=== PATIENT | male | born 1960 | race Caucasian/White ===

== ENCOUNTER 2018-01-16 01:06 | Outpatient (CLI) | payer MEDICAID, SELFPAY ==
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
== END 2018-01-16 01:07 ==
PROVIDERS: PCP Nurse Practitioner; Visit Provider Nurse Practitioner Family
DX: M79.672 Pain in left foot (principal); M25.572 Pain in left ankle and joints of left foot; M25.472 Effusion, left ankle; M77.32 Calcaneal spur, left foot
CPT/HCPCS: 73610; 73630

== ENCOUNTER 2018-02-27 00:22 | Outpatient (CLI) | payer MEDICAID, SELFPAY ==
--- NOTE | 2018-02-27 15:50 | DI.US_ITS ---
SYMPTOM/DIAGNOSIS: LLE EDEMA, R60.0 LEFT LOWER EXTREMITY ULTRASOUND: The deep veins of the left lower extremity show normal compression, augmentation and color flow. No evidence of a deep venous thrombus is seen. There is edema seen in the subcutaneous tissues of the lower extremity. IMPRESSION: No evidence of a left lower extremity deep venous thrombus.
== END 2018-02-27 00:42 ==
PROVIDERS: PCP Nurse Practitioner; Visit Provider Nurse Practitioner
DX: R60.0 Localized edema (principal); M79.662 Pain in left lower leg
CPT/HCPCS: 93971

== ENCOUNTER 2018-11-12 08:19 | Outpatient (CLI) | payer MEDICAID, SELFPAY ==
[2018-11-12 08:39] LABS: HCT 39.2 % (40.0-50.0); HGB 13.9 g/dL (13.5-17.5); Mean Corp. HGB Concentration 35.5 g/dL (32.0-36.0); Mean Corpuscular Hemoglobin 32.8 pg (27.0-33.0); Mean Corpuscular Volume 92.5 fL (80-95); Mean Platelet Volume 8.5 fL (8.0-11.0); Platelet Count 172 x1000/uL (130-400); RBC 4.24 m/cumm (4.50-6.00); RBC Distribution Width 12.5 % (11.8-14.1); White Blood Cell Count 8.36 k/cumm (4.4-10.8)
[2018-11-12 09:31] LABS: ALT 33 U/L (12-78); AST 21 U/L (15-37); Albumin 3.3 g/dL (3.4-5.0); Alkaline Phosphatase 111 U/L (46-116); BUN 11 mg/dL (7-18); Bilirubin, Total 0.6 mg/dL (0.2-1.0); CREATININE 1.21 mg/dL (0.70-1.30); Calcium 9.1 mg/dL (8.5-10.1); Calculated LDL 59; Chloride 106 mmol/L (98-107); Cholesterol 133 mg/dL (50-200); Glucose 83 mg/dL (70-100); HDL Cholesterol 38 mg/dL (40-60); Potassium 3.8 mmol/L (3.5-5.1); Sodium 141 mmol/L (136-145); Total Protein 6.8 g/dL (6.4-8.2); Triglyceride 180 mg/dL (30-150)
== END 2018-11-12 08:39 ==
PROVIDERS: PCP Nurse Practitioner; Visit Provider Nurse Practitioner
DX: E11.69 Type 2 diabetes mellitus with other specified complication (principal); E11.8 Type 2 diabetes mellitus with unspecified complications; E78.5 Hyperlipidemia, unspecified; F17.200 Nicotine dependence, unspecified, uncomplicated; I10 Essential (primary) hypertension; Z79.4 Long term (current) use of insulin
CPT/HCPCS: 36415; 80053; 80061; 83721; 85027; 82043; 82570

== ENCOUNTER 2020-09-26 08:52 | Outpatient (REF) | payer MEDICAID, SELFPAY ==
[2020-09-26 13:11] LABS: HGB 14.5 g/dL (13.5-17.5); MCH 32.3 pg (27.0-33.0); MCHC 34.5 % (32.0-36.0); MCV 93.5 fL (80-95); MPV 8.5 fL (8.0-11.0); Platelet Count 190 10^3/uL (130-400); RBC 4.49 10^6/uL (4.36-5.78); RDW 11.7 % (11.8-14.1); RDW-SD 40.4 fL; WBC 7.58 10^3/uL (4.4-10.8)
[2020-09-26 13:22] LABS: ALT 33 U/L (16-63); AST 18 U/L (15-37); Albumin 3.6 g/dL (3.4-5.0); Alkaline Phosphatase 90 U/L (46-116); Anion Gap 9.1 mmol/L (3-11); BUN 19 mg/dL (7-18); Bilirubin, Total 0.5 mg/dL (0.2-1.0); CO2 25.9 mmol/L (21.0-32.0); CREATININE 1.3 mg/dL (0.70-1.30); Calcium 8.7 mg/dL (8.5-10.1); Calculated LDL 75 mg/dL (<100); Chloride 108 mmol/L (98-107); Cholesterol 151 mg/dL (<200); Estimated GFR 56.12 (mL/min/1.73m2); Glucose 107 mg/dL (74-106); HDL Cholesterol 47 mg/dL (40-60); Sodium 143 mmol/L (136-145); Total Protein 7.3 g/dL (6.4-8.2); Triglyceride 146 mg/dL (<150)
[2020-09-27 16:28] LABS: COMMENT (LAB VIEW ONLY) 146.23 mg/dL
== END 2020-09-26 08:53 | disposition home or self-care (01) ==
LOC: LBN 08:52
PROVIDERS: PCP Nurse Practitioner; Referring Provider Nurse Practitioner; Visit Provider Nurse Practitioner
DX: E78.5 Hyperlipidemia, unspecified (principal); I10 Essential (primary) hypertension; E11.8 Type 2 diabetes mellitus with unspecified complications; Z79.4 Long term (current) use of insulin
CPT/HCPCS: 80053; 80061; 85027; 82043; 82570

== ENCOUNTER 2021-03-04 18:40 | Emergency (ER) | payer MEDICAID, SELFPAY ==
[2021-03-04] VITALS (80 sets, daily range): BP systolic 80–113; BP diastolic 54–69; PULSE 67–76; RESP 16; TEMP 36.4–36.6; O2SAT 84–100
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
[2021-03-04] MEDS: HYDROmorphone 2 MG/ML VIAL 1 MG IVP ×2 (18:40→20:33)
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
[2021-03-04 19:22] LABS: Abs Immature Grans 0.04 10^3/uL (0.0-0.06); Absolute Basophil Count 0.05 10^3/uL (0.0-0.2); Absolute Eosinophil Count 0.49 10^3/uL (0.0-0.7); Absolute Lymphocyte Count 1.81 10^3/uL (1.2-3.4); Absolute Monocyte Count 0.78 10^3/uL (0.1-0.8); Absolute Neutrophil Count 6.71 10^3/uL (1.2-6.7); Basophils % 0.5; HCT 31.7 % (40.0-50.0); HGB 10.9 g/dL (13.5-17.5); Immature Grans % 0.4; Lymphocytes % 18.3; MCH 32.2 pg (27.0-33.0); MCHC 34.4 % (32.0-36.0); MCV 93.8 fL (80-95); MPV 8.2 fL (8.0-11.0); Monocytes % 7.9; Neutrophils % 67.9; Nucleated RBC 0 %; Platelet Count 156 10^3/uL (130-400); RBC 3.38 10^6/uL (4.36-5.78); RDW 12.1 % (11.8-14.1); RDW-SD 41.8 fL; WBC 9.88 10^3/uL (4.4-10.8)
[2021-03-04 19:35] LABS: ALT 23 U/L (16-63); AST 15 U/L (15-37); Albumin 2.8 g/dL (3.4-5.0); Alkaline Phosphatase 79 U/L (46-116); Anion Gap 9.1 mmol/L (3-11); BUN 15 mg/dL (7-18); Bilirubin, Total 0.5 mg/dL (0.2-1.0); CO2 22.9 mmol/L (21.0-32.0); CREATININE 1.5 mg/dL (0.70-1.30); Chloride 109 mmol/L (98-107); Estimated GFR 47.58 (mL/min/1.73m2); Glucose 161 mg/dL (74-106); Potassium 3.7 mmol/L (3.5-5.1); Sodium 141 mmol/L (136-145); Total Protein 5.8 g/dL (6.4-8.2)
[2021-03-04 19:39] LABS: PTT Activated 20.7 sec (21.0-27.5); Prothrombin Time 10.2 sec (9.3-11.0)
[2021-03-04 20:02] LABS: Source Nasal/Nares
[2021-03-04] MEDS: Omnipaque 350 MG/ML 100 ML BTL IJ (20:02)
[2021-03-04] MEDS: Lactated Ringers 1,000 ML 125 ML IV (20:30)
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
[2021-03-04] MEDS: Tranexamic Acid 1,000 MG/10 ML VIAL 1000 MG ×2 (20:45→21:30)
[2021-03-04 20:51] LABS: COVID-19 PCR Negative (Negative)
== END 2021-03-04 21:50 | disposition short-term general hospital (02) ==
PROVIDERS: Student in an Organized Health Care Education/Training Program; Emergency Provider Physician Assistant; PCP Nurse Practitioner
DX: S82.292B Other fracture of shaft of left tibia, initial encounter for open fracture type I or II (principal); S82.492B Other fracture of shaft of left fibula, initial encounter for open fracture type I or II; S85.092A Other specified injury of popliteal artery, left leg, initial encounter; S85.182A Other specified injury of posterior tibial artery, left leg, initial encounter; W32.0XXA Accidental handgun discharge, initial encounter
CPT/HCPCS: 36430; 73706; 80053; 86850; 86900; 86901; 86920; 87635; 96361; 96365; 96375; 96376; 99285; 85025; 85610; 85730; J0690; J3490; P9016

== ENCOUNTER 2021-03-14 20:00 | Outpatient (REF) | payer MEDICAID, SELFPAY ==
[2021-03-14 21:13] LABS: Absolute Basophil Count 0.03 10^3/uL (0.0-0.2); Absolute Eosinophil Count 0.54 10^3/uL (0.0-0.7); Absolute Lymphocyte Count 1.39 10^3/uL (1.2-3.4); Absolute Neutrophil Count 5.53 10^3/uL (1.2-6.7); Basophils % 0.3; Eosinophils % 6.1; HCT 26.9 % (40.0-50.0); HGB 8.8 g/dL (13.5-17.5); Immature Grans % 3.4; Lymphocytes % 15.6; MCH 31.1 pg (27.0-33.0); MCHC 32.7 % (32.0-36.0); MCV 95.1 fL (80-95); MPV 9.4 fL (8.0-11.0); Monocytes % 12.4; Neutrophils % 62.2; Nucleated RBC 0 %; RBC 2.83 10^6/uL (4.36-5.78); RDW 14.5 % (11.8-14.1); RDW-SD 49.4 fL; WBC 8.89 10^3/uL (4.4-10.8)
[2021-03-14 21:17] LABS: Platelet Count 290 10^3/uL (130-400)
[2021-03-14 22:28] LABS: Anion Gap 8.6 mmol/L (3-11); BUN 17 mg/dL (7-18); CO2 24.4 mmol/L (21.0-32.0); CREATININE 1.2 mg/dL (0.70-1.30); Calcium 8.2 mg/dL (8.5-10.1); Chloride 100 mmol/L (98-107); Glucose 150 mg/dL (74-106); Potassium 3.6 mmol/L (3.5-5.1); Sodium 133 mmol/L (136-145)
== END 2021-03-14 20:01 | disposition home or self-care (01) ==
LOC: LBN 20:00
PROVIDERS: PCP Nurse Practitioner; Visit Provider Family Medicine
DX: I10 Essential (primary) hypertension (principal); N17.9 Acute kidney failure, unspecified; D62 Acute posthemorrhagic anemia
CPT/HCPCS: 80048; 85025

== ENCOUNTER 2021-03-16 16:36 | Outpatient (REF) | payer MEDICAID, SELFPAY ==
[2021-03-16 18:02] LABS: Abs Immature Grans 0.13 10^3/uL (0.0-0.06); Absolute Basophil Count 0.03 10^3/uL (0.0-0.2); Absolute Eosinophil Count 0.37 10^3/uL (0.0-0.7); Absolute Lymphocyte Count 1.54 10^3/uL (1.2-3.4); Absolute Monocyte Count 1.09 10^3/uL (0.1-0.8); Absolute Neutrophil Count 3.45 10^3/uL (1.2-6.7); Basophils % 0.5; Eosinophils % 5.6; HCT 24.9 % (40.0-50.0); Lymphocytes % 23.3; MCH 31.3 pg (27.0-33.0); MCHC 32.1 % (32.0-36.0); MCV 97.3 fL (80-95); MPV 9.2 fL (8.0-11.0); Monocytes % 16.5; Neutrophils % 52.1; Nucleated RBC 0 %; Platelet Count 309 10^3/uL (130-400); RBC 2.56 10^6/uL (4.36-5.78); RDW-SD 51.8 fL; WBC 6.61 10^3/uL (4.4-10.8)
[2021-03-16 18:13] LABS: ALT 70 U/L (16-63); AST 40 U/L (15-37); Albumin 2.3 g/dL (3.4-5.0); Alkaline Phosphatase 169 U/L (46-116); Anion Gap 5.5 mmol/L (3-11); BUN 10 mg/dL (7-18); Bilirubin, Total 0.6 mg/dL (0.2-1.0); CO2 25.5 mmol/L (21.0-32.0); CREATININE 1.2 mg/dL (0.70-1.30); Calcium 7.8 mg/dL (8.5-10.1); Chloride 103 mmol/L (98-107); Glucose 155 mg/dL (74-106); Sodium 134 mmol/L (136-145); Total Protein 5.8 g/dL (6.4-8.2)
[2021-03-16 19:08] LABS: Hemoglobin A1C 6.3 % (<5.7)
== END 2021-03-16 16:37 | disposition home or self-care (01) ==
LOC: LBN 16:36
PROVIDERS: PCP Nurse Practitioner; Visit Provider Family Medicine
DX: E11.319 Type 2 diabetes mellitus with unspecified diabetic retinopathy without macular edema (principal)
CPT/HCPCS: 80053; 83036; 85025

== ENCOUNTER 2021-04-30 18:00 | Outpatient (REF) | payer MEDICAID, SELFPAY ==
[2021-04-30 19:33] LABS: HCT 37.4 % (40.0-50.0); MCH 29.9 pg (27.0-33.0); MCHC 32.1 % (32.0-36.0); MCV 93.3 fL (80-95); MPV 8.9 fL (8.0-11.0); Platelet Count 257 10^3/uL (130-400); RBC 4.01 10^6/uL (4.36-5.78); RDW 13.5 % (11.8-14.1); WBC 6.89 10^3/uL (4.4-10.8)
[2021-04-30 19:52] LABS: ALT 30 U/L (16-63); AST 17 U/L (15-37); Albumin 3.1 g/dL (3.4-5.0); Alkaline Phosphatase 135 U/L (46-116); Anion Gap 10.2 mmol/L (3-11); BUN 19 mg/dL (7-18); Bilirubin, Total 0.3 mg/dL (0.2-1.0); CO2 25.8 mmol/L (21.0-32.0); CREATININE 1.2 mg/dL (0.70-1.30); Calcium 8.8 mg/dL (8.5-10.1); Chloride 106 mmol/L (98-107); Glucose 241 mg/dL (74-106); Potassium 4.5 mmol/L (3.5-5.1); Sodium 142 mmol/L (136-145); Total Protein 7.1 g/dL (6.4-8.2)
== END 2021-04-30 18:01 | disposition home or self-care (01) ==
LOC: LBN 18:00
PROVIDERS: PCP Nurse Practitioner; Visit Provider Nurse Practitioner
DX: S81.832D Puncture wound without foreign body, left lower leg, subsequent encounter; X58.XXXD Exposure to other specified factors, subsequent encounter
CPT/HCPCS: 80053; 85027

== ENCOUNTER 2021-10-02 09:09 | Outpatient (REF) | payer MEDICAID, SELFPAY ==
[2021-10-02 17:03] LABS: HCT 38.9 % (40.0-50.0); HGB 13.4 g/dL (13.5-17.5); MCH 31.3 pg (27.0-33.0); MCHC 34.4 % (32.0-36.0); MCV 90.9 fL (80-95); MPV 8.8 fL (8.0-11.0); Platelet Count 205 10^3/uL (130-400); RBC 4.28 10^6/uL (4.36-5.78); RDW 12.6 % (11.8-14.1); RDW-SD 41.3 fL; WBC 8.16 10^3/uL (4.4-10.8)
[2021-10-02 17:07] LABS: ALT 24 U/L (16-63); AST 16 U/L (15-37); Albumin 3.4 g/dL (3.4-5.0); Alkaline Phosphatase 123 U/L (46-116); Anion Gap 8.8 mmol/L (3-11); BUN 24 mg/dL (7-18); Bilirubin, Total 0.4 mg/dL (0.2-1.0); CO2 23.2 mmol/L (21.0-32.0); CREATININE 1.2 mg/dL (0.70-1.30); Calcium 9.1 mg/dL (8.5-10.1); Calculated LDL 63 mg/dL (<100); Chloride 106 mmol/L (98-107); Cholesterol 160 mg/dL (<200); Glucose 147 mg/dL (74-106); HDL Cholesterol 48 mg/dL (40-60); Potassium 3.7 mmol/L (3.5-5.1); Sodium 138 mmol/L (136-145); Total Protein 7.1 g/dL (6.4-8.2); Triglyceride 249 mg/dL (<150)
== END 2021-10-02 09:10 | disposition home or self-care (01) ==
LOC: LBN 09:09
PROVIDERS: PCP Nurse Practitioner; Visit Provider Nurse Practitioner
DX: I10 Essential (primary) hypertension (principal); E78.5 Hyperlipidemia, unspecified; E11.69 Type 2 diabetes mellitus with other specified complication
CPT/HCPCS: 80053; 80061; 85027

== ENCOUNTER → 2022-03-21 01:25 | Outpatient (CLI) | payer MEDICAID, SELFPAY ==
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
== END ==
PROVIDERS: PCP Nurse Practitioner; Visit Provider Student in an Organized Health Care Education/Training Program
DX: S82.202E Unspecified fracture of shaft of left tibia, subsequent encounter for open fracture type I or II with routine healing (principal); S82.402E Unspecified fracture of shaft of left fibula, subsequent encounter for open fracture type I or II with routine healing
CPT/HCPCS: 73700

== ENCOUNTER 2022-05-07 09:59 | Outpatient (CLI) | payer MEDICAID, SELFPAY ==
--- NOTE | 2022-05-07 09:45 | RT.EKG_ITS ---
APPROVED REPORT Exam: Resting ECG Reason for Exam: ED Patient Location: O HR:60 bpm ECG Measurements Heart Rate 60 AXIS AR 202 P 35 QRSd 87 QRS -11 QT 413 T 29 QTc 413 Conclusion Sinus rhythm...normal P axis, V-rate 50- 99 Abnormal R-wave progression, early transition...QRS area>0 in V2
== END 2022-05-07 10:00 | disposition home or self-care (01) ==
LOC: DI.KIM 10:00
PROVIDERS: PCP Nurse Practitioner; Visit Provider Nurse Practitioner
DX: N52.9 Male erectile dysfunction, unspecified (principal)
CPT/HCPCS: 93010

== ENCOUNTER 2022-10-28 11:45 | Outpatient (REF) | payer MEDICAID, SELFPAY ==
[2022-10-28 16:13] LABS: HCT 39.8 % (40.0-50.0); MCH 32.6 pg (27.0-33.0); MCHC 35.2 % (32.0-36.0); MCV 93 fL (80-95); MPV 8.4 fL (8.0-11.0); Platelet Count 182 10^3/uL (130-400); RDW 12.2 % (11.8-14.1); RDW-SD 42.1 fL; WBC 7.94 10^3/uL (4.4-10.8)
[2022-10-28 17:51] LABS: ALT 29 U/L (16-63); AST 20 U/L (15-37); Albumin 3.7 g/dL (3.4-5.0); Alkaline Phosphatase 90 U/L (46-116); BUN 21 mg/dL (7-18); Bilirubin, Total 0.7 mg/dL (0.2-1.0); CREATININE 1.6 mg/dL (0.70-1.30); Calcium 9.6 mg/dL (8.5-10.1); Chloride 104 mmol/L (98-107); Estimated GFR 48.11 (mL/min/1.73m2); Glucose 101 mg/dL (74-106); Potassium 3.9 mmol/L (3.5-5.1); Sodium 139 mmol/L (136-145); TSH (W/Ref FT4) 4.01 uIU/mL (0.36-3.74); Total Protein 7.6 g/dL (6.4-8.2)
[2022-10-28 18:16] LABS: Calculated LDL 66 mg/dL (<100); Cholesterol 140 mg/dL (<200); HDL Cholesterol 50 mg/dL (40-60); Triglyceride 120 mg/dL (<150)
[2022-10-28 18:27] LABS: FREE T4 0.86 ng/dL (0.76-1.46)
== END 2022-10-28 11:46 | disposition home or self-care (01) ==
LOC: LBN 11:45
PROVIDERS: PCP Nurse Practitioner; Referring Provider Nurse Practitioner; Visit Provider Nurse Practitioner
DX: I10 Essential (primary) hypertension (principal); E78.5 Hyperlipidemia, unspecified; E11.69 Type 2 diabetes mellitus with other specified complication; R63.4 Abnormal weight loss
CPT/HCPCS: 80053; 80061; 85027; 84439; 84443

== ENCOUNTER 2023-05-19 11:23 | Emergency (ER) | payer MEDICAID, SELFPAY ==
[2023-05-19] VITALS (8 sets, daily range): BP systolic 101–141; BP diastolic 57–83; PULSE 58–88; RESP 16; O2SAT 94–98
[2023-05-19 12:27] LABS: Abs Immature Grans 0.02 10^3/uL (0.0-0.06); Absolute Basophil Count 0.04 10^3/uL (0.0-0.2); Absolute Lymphocyte Count 1.04 10^3/uL (1.2-3.4); Absolute Monocyte Count 0.64 10^3/uL (0.1-0.8); Basophils % 0.6; Eosinophils % 4.7; HCT 38.7 % (40.0-50.0); HGB 13.4 g/dL (13.5-17.5); Immature Grans % 0.3; Lymphocytes % 16.4; MCH 31.8 pg (27.0-33.0); MCHC 34.6 % (32.0-36.0); MCV 92 fL (80-95); MPV 8.4 fL (8.0-11.0); Monocytes % 10.1; Neutrophils % 67.9; Platelet Count 158 10^3/uL (130-400); RBC 4.21 10^6/uL (4.36-5.78); RDW 12.5 % (11.8-14.1); RDW-SD 42.1 fL; WBC 6.34 10^3/uL (4.4-10.8)
[2023-05-19 12:42] LABS: ALT 45 U/L (16-63); AST 26 U/L (15-37); Albumin 3.2 g/dL (3.4-5.0); Alkaline Phosphatase 144 U/L (46-116); Anion Gap 12.6 mmol/L (3-11); BUN 19 mg/dL (7-18); Bilirubin, Total 0.7 mg/dL (0.2-1.0); CO2 23.4 mmol/L (21.0-32.0); CREATININE 1.8 mg/dL (0.70-1.30); Calcium 8.8 mg/dL (8.5-10.1); Chloride 100 mmol/L (98-107); Estimated GFR 41.77 (mL/min/1.73m2); Glucose 176 mg/dL (74-106); Magnesium 1.7 mg/dL (1.8-2.4); Sodium 136 mmol/L (136-145); Total Protein 7.4 g/dL (6.4-8.2)
[2023-05-19] MEDS: Magnesium Oxide 400 MG TAB 800 MG PO (13:27)
[2023-05-19] MEDS: POTASSIUM CHLORIDE 20 MEQ/100 ML BAG 50 MEQ IVPB (13:27)
[2023-05-19] MEDS: Potassium Chloride 20 MEQ TABCR PO (13:27)
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
== END 2023-05-19 16:10 | disposition home or self-care (01) ==
PROVIDERS: Emergency Provider Student in an Organized Health Care Education/Training Program; PCP Nurse Practitioner
DX: E11.649 Type 2 diabetes mellitus with hypoglycemia without coma (principal); E87.6 Hypokalemia; E83.42 Hypomagnesemia
CPT/HCPCS: 36415; 36416; 80053; 82962; 96365; 99284; 83735; 85025; J3480

== ENCOUNTER 2023-10-06 05:46 | Outpatient (CLI) | payer MEDICAID, SELFPAY ==
[2023-10-06 13:36] LABS: Abs Immature Grans 0.02 10^3/uL (0.0-0.06); Absolute Basophil Count 0.05 10^3/uL (0.0-0.2); Absolute Lymphocyte Count 2.09 10^3/uL (1.2-3.4); Absolute Monocyte Count 0.59 10^3/uL (0.1-0.8); Absolute Neutrophil Count 4.25 10^3/uL (1.2-6.7); Basophils % 0.7; Eosinophils % 6.7; HCT 39.6 % (40.0-50.0); Immature Grans % 0.3; Lymphocytes % 27.9; MCH 32.9 pg (27.0-33.0); MCHC 35.4 % (32.0-36.0); MCV 93 fL (80-95); MPV 8.2 fL (8.0-11.0); Monocytes % 7.9; Neutrophils % 56.5; Platelet Count 169 10^3/uL (130-400); RBC 4.26 10^6/uL (4.36-5.78); RDW 12.4 % (11.8-14.1); RDW-SD 42.5 fL
[2023-10-06 14:05] LABS: ALT 26 U/L (16-63); AST 15 U/L (15-37); Albumin 3.7 g/dL (3.4-5.0); Alkaline Phosphatase 95 U/L (46-116); Anion Gap 12.4 mmol/L (3-11); BUN 23 mg/dL (7-18); Bilirubin, Total 0.4 mg/dL (0.2-1.0); CO2 20.6 mmol/L (21.0-32.0); CREATININE 1.5 mg/dL (0.70-1.30); Calcium 9.3 mg/dL (8.5-10.1); Chloride 105 mmol/L (98-107); Estimated GFR 51.67 (mL/min/1.73m2); Glucose 147 mg/dL (74-106); Potassium 4.1 mmol/L (3.5-5.1); Sodium 138 mmol/L (136-145); Total Protein 7.3 g/dL (6.4-8.2)
== END 2023-10-06 05:47 | disposition home or self-care (01) ==
PROVIDERS: PCP Nurse Practitioner; Visit Provider Nurse Practitioner
DX: E11.8 Type 2 diabetes mellitus with unspecified complications (principal); Z79.4 Long term (current) use of insulin
CPT/HCPCS: 36415; 80053; 85025

== ENCOUNTER 2024-12-21 17:03 | Outpatient (REF) | payer MEDICARE, SELFPAY | END 2024-12-21 17:04 | disposition home or self-care (01) | LOC: LBN 17:03 | PROVIDERS: PCP Nurse Practitioner; Visit Provider Nurse Practitioner Family | DX: L97.509 Non-pressure chronic ulcer of other part of unspecified foot with unspecified severity (principal) | CPT/HCPCS: 87077; 87070; 87186 ==

== ENCOUNTER 2024-12-22 01:30 | Outpatient (CLI) | payer MEDICARE, SELFPAY ==
--- NOTE | 2024-12-22 07:15 | DI.RAD_ITS ---
Exam(s) XR FOOT RT COMPLETE EXAM: XR FOOT RT COMPLETE CLINICAL HISTORY: new diabetic ulcer right 3rd toe,l97.509. TECHNIQUE: 2D digital imaging was performed of the right foot. Three images were obtained. AP, oblique and lateral views were obtained. COMPARISON: CR RIGHT FOOT COMPLETE from 11/18/2013 FINDINGS: BONES: No acute fracture is present. No bony destructive lesion is seen. There is a small enthesophyte at the posterior calcaneus. JOINTS: No dislocation present. There are hammertoe deformities of the 2nd through 5th toes. Because of this there is some difficulty in seeing the right 3rd toe, but no destructive lesion is seen to suggest osteomyelitis. SOFT TISSUE: No soft tissue gas is appreciated at this time. Vascular calcifications are present throughout the foot. IMPRESSION: No radiographic evidence to suggest osteomyelitis. DATA REPOSITORY: RADIATION DOSE DELIVERED:
== END 2024-12-22 01:50 ==
PROVIDERS: PCP Family Medicine; Visit Provider Nurse Practitioner Family
DX: M20.41 Other hammer toe(s) (acquired), right foot (principal)
CPT/HCPCS: 73630

== ENCOUNTER 2024-12-22 10:25 | Outpatient (CLI) | payer MEDICARE, SELFPAY ==
[2024-12-22 10:59] LABS: HCT 36.9 % (40.0-50.0); HGB 12.8 g/dL (13.5-17.5); MCH 32.2 pg (27.0-33.0); MCHC 34.7 % (32.0-36.0); MCV 93 fL (80-95); MPV 8.7 fL (8.0-11.0); Platelet Count 172 10^3/uL (130-400); RBC 3.98 10^6/uL (4.36-5.78); RDW 12.4 % (11.8-14.1); RDW-SD 42.6 fL; WBC 7.00 10^3/uL (4.4-10.8)
[2024-12-22 11:21] LABS: Anion Gap 12.7 mmol/L (3-11); BUN 18 mg/dL (7-18); CO2 22.3 mmol/L (21.0-32.0); Calcium 9.6 mg/dL (8.5-10.1); Calculated LDL 84 mg/dL (<100); Chloride 104 mmol/L (98-107); Cholesterol 149 mg/dL (<200); Estimated GFR 55.78 (mL/min/1.73m2); Glucose 93 mg/dL (74-106); HDL Cholesterol 43 mg/dL (>or=40); Potassium 3.8 mmol/L (3.5-5.1); Sodium 139 mmol/L (136-145); Triglyceride 111 mg/dL (<150)
[2024-12-22 11:23] LABS: Hemoglobin A1C 6.9 % (<5.7)
== END 2024-12-22 10:26 | disposition home or self-care (01) ==
LOC: LBO 10:26
PROVIDERS: PCP Family Medicine; Visit Provider Nurse Practitioner Family
DX: E11.8 Type 2 diabetes mellitus with unspecified complications (principal); Z79.4 Long term (current) use of insulin; L97.509 Non-pressure chronic ulcer of other part of unspecified foot with unspecified severity; I10 Essential (primary) hypertension; E78.5 Hyperlipidemia, unspecified
CPT/HCPCS: 36415; 80048; 80061; 85027; 73630; 83036

== ENCOUNTER → 2024-12-27 09:25 | Outpatient (BNVA) | payer MEDICARE, MEDICAID, SELFPAY | PROVIDERS: PCP Nurse Practitioner; Referring Provider Nurse Practitioner; Visit Provider Podiatrist | DX: L97.512 Non-pressure chronic ulcer of other part of right foot with fat layer exposed (principal); E11.8 Type 2 diabetes mellitus with unspecified complications; Z79.4 Long term (current) use of insulin; I73.89 Other specified peripheral vascular diseases | CPT/HCPCS: 11042 ==

== ENCOUNTER → 2025-01-18 14:45 | Outpatient (BNVA) | payer MEDICARE, MEDICAID, SELFPAY | PROVIDERS: PCP Nurse Practitioner; Referring Provider Nurse Practitioner; Visit Provider Podiatrist | DX: L97.512 Non-pressure chronic ulcer of other part of right foot with fat layer exposed (principal); E11.621 Type 2 diabetes mellitus with foot ulcer; I73.89 Other specified peripheral vascular diseases; Z79.4 Long term (current) use of insulin | CPT/HCPCS: 11042 ==

== ENCOUNTER 2025-03-03 13:45 | Outpatient (REF) | payer MEDICARE, MEDICAID, SELFPAY | END 2025-03-03 13:46 | disposition home or self-care (01) | LOC: LBN 13:45 | PROVIDERS: PCP Family Medicine; Referring Provider Family Medicine; Visit Provider Podiatrist | DX: M86.9 Osteomyelitis, unspecified (principal); L97.512 Non-pressure chronic ulcer of other part of right foot with fat layer exposed | CPT/HCPCS: 87077; 87070; 87075; 87205 ==

== ENCOUNTER → 2025-03-03 13:45 | Outpatient (BNVA) | payer MEDICARE, MEDICAID, SELFPAY | PROVIDERS: PCP Family Medicine; Referring Provider Family Medicine; Visit Provider Podiatrist | DX: L97.512 Non-pressure chronic ulcer of other part of right foot with fat layer exposed (principal); L02.611 Cutaneous abscess of right foot; L03.115 Cellulitis of right lower limb; E11.8 Type 2 diabetes mellitus with unspecified complications; Z79.4 Long term (current) use of insulin; Z91.199 Patient's noncompliance with other medical treatment and regimen due to unspecified reason; I73.89 Other specified peripheral vascular diseases; M86.9 Osteomyelitis, unspecified | CPT/HCPCS: 28010; 11042 ==

== ENCOUNTER → 2025-03-09 10:28 | Outpatient (BNVA) | payer MEDICARE, MEDICAID, SELFPAY | PROVIDERS: PCP Family Medicine; Referring Provider Family Medicine; Visit Provider Podiatrist | DX: Z98.890 Other specified postprocedural states (principal); M20.41 Other hammer toe(s) (acquired), right foot; L02.611 Cutaneous abscess of right foot; L03.115 Cellulitis of right lower limb; L97.512 Non-pressure chronic ulcer of other part of right foot with fat layer exposed; E11.621 Type 2 diabetes mellitus with foot ulcer; Z79.4 Long term (current) use of insulin; Z91.199 Patient's noncompliance with other medical treatment and regimen due to unspecified reason; I73.9 Peripheral vascular disease, unspecified | CPT/HCPCS: 99024 ==

== ENCOUNTER → 2025-03-16 10:16 | Outpatient (BNVA) | payer MEDICARE, MEDICAID, SELFPAY | PROVIDERS: PCP Family Medicine; Referring Provider Family Medicine; Visit Provider Podiatrist | DX: L97.512 Non-pressure chronic ulcer of other part of right foot with fat layer exposed (principal); E11.621 Type 2 diabetes mellitus with foot ulcer; Z79.4 Long term (current) use of insulin; I73.89 Other specified peripheral vascular diseases; M20.41 Other hammer toe(s) (acquired), right foot; Z91.199 Patient's noncompliance with other medical treatment and regimen due to unspecified reason | CPT/HCPCS: 97597 ==

== ENCOUNTER 2025-05-29 14:47 | Emergency (ER) | payer MEDICARE, MEDICAID, SELFPAY ==
[2025-05-29 14:48] VITALS: BP 171/82; PULSE 41; RESP 18; TEMP 36.9; O2SAT 98
[2025-05-29 14:55] VITALS: BP 171/82; PULSE 41; RESP 18; TEMP 36.9; O2SAT 98
--- NOTE | 2025-05-29 16:15 | DI.RAD_ITS ---
Exam(s) XR FOOT RT COMPLETE EXAM: XR FOOT RT COMPLETE CLINICAL HISTORY: 2nd toe injury, now with erythema. TECHNIQUE: 2D digital imaging was performed of the right foot. Three images were obtained. AP, oblique and lateral views were obtained. COMPARISON: CR RIGHT FOOT COMPLETE from 11/18/2013 CR XR FOOT RT COMPLETE from 12/22/2024 FINDINGS: BONES: No acute fracture is present. No bony destructive lesion is seen. There is an old healed fracture deformity of the distal phalanx of the great toe. JOINTS: No dislocation present. There has been no significant change in alignment of the interphalangeal joints of the 2nd, 4th and 5th toes compared to the prior examination. SOFT TISSUE: There is soft tissue swelling of the 2nd toe. There is a tiny well corticated osseous density in the soft tissues of the 2nd toe. It appears chronic. Atherosclerotic calcification is present. IMPRESSION: 1. No definite change in alignment of the 2nd toe compared to the prior examination. If there is continued concern, a CT scan of the toes should be considered for further characterization. 2. The preliminary [facility] report was reviewed. DATA REPOSITORY: RADIATION DOSE DELIVERED:
[2025-05-29] MEDS: AMPICILLIN/SULBACTAM 3 GM in Normal Saline 100 ML IVPB (17:13)
[2025-05-29 17:19] LABS: Abs Immature Grans 0.02 10^3/uL (0.0-0.06); BE (Venous) -3 mmol/L (-2-3); HCO3 (Venous) 22 mmol/L (23-28); HCT 34.4 % (40.0-50.0); HGB 12.1 g/dL (13.5-17.5); Immature Grans % 0.3 %; MCH 32.4 pg (27.0-33.0); MCHC 35.2 % (32.0-36.0); MCV 92 fL (80-95); MPV 9.2 fL (8.0-11.0); O2 Sat (Venous) 96 %; Platelet Count 167 10^3/uL (130-400); RBC 3.74 10^6/uL (4.36-5.78); RDW 11.9 % (11.8-14.1); RDW-SD 40.3 fL; TCO2 (Venous) 20 mmol/L (24-29); WBC 6.32 10^3/uL (4.4-10.8); pCO2 (Venous) 35 mmHg (41-51); pO2 (Venous) 71 mmHg
[2025-05-29 17:30] LABS: ESR 22 mm/hr (0-20)
[2025-05-29 17:43] LABS: C-Reactive Protein 3.43 mg/dL (<=0.50)
[2025-05-29 17:59] LABS: ALT 36 U/L (10-49); AST 33 U/L (<34); Albumin 3.9 g/dL (3.2-5.0); Alkaline Phosphatase 92 U/L (46-116); Anion Gap 3.4 mmol/L (3-11); BUN 26 mg/dL (9-23); Bilirubin, Total 0.3 mg/dL (0.2-1.2); CO2 21.6 mmol/L (20.0-31.0); Calcium 8.9 mg/dL (8.3-10.6); Chloride 114 mmol/L (98-107); Glucose 158 mg/dL (74-106); Potassium 4.4 mmol/L (3.5-5.1); Sodium 139 mmol/L (136-145); Total Protein 7.0 g/dL (5.7-8.2)
--- NOTE | 2025-05-29 18:15 | DI.[facility]_ITS ---
PROCEDURE INFORMATION: Exam: XR Right Foot Exam date and time: 05/29/2025 5:22 PM Age: 64 years old Clinical indication: Injury or trauma; Other: 2nd toe injury, now with erythema TECHNIQUE: Imaging protocol: Radiologic exam of the right foot. Views: 3 or more views. COMPARISON: CR XR FOOT RT COMPLETE 12/22/2024 10:07 AM FINDINGS: Bones/joints: There is an anterior dislocation of the PIP joint of the 2nd toe. There appears to be minimal impaction. Similar changes involve the 4th and 5th toes, uncertain chronicity. Degenerative changes noted in the IP joint of the great toe. Soft tissues: Normal. Vasculature: Vascular calcifications are present. IMPRESSION: Apparent PIP dislocation of the 2nd toe. Similar changes suspected at the 4th and 5th toe levels. Dictated and Authenticated by: Maren Emmanuel MD. Orderin Serg Ordoñez MD
[2025-05-29] MEDS: Amox. 875/Clav. 125, 2 TABS/BTL 1 TAB PO (18:32)
[2025-05-29 18:33] VITALS: BP 125/71; PULSE 66; RESP 18; O2SAT 99
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
--- NOTE | 2025-05-31 09:34 | ED.FU.B_ITS ---
Date of service: 05/31/25 Time of Service: 09:34 Follow Up Plan: This patient had a wound culture resulted my shift. It was growing gram- positive amina and gram-negative rods. Patient has been diagnosed with cellulitis and had been discharged on amoxicillin clavulanic acid.he has a recheck with podiatry today or tomorrow.
== END 2025-05-29 18:34 | disposition home or self-care (01) ==
PROVIDERS: Emergency Provider Physician Assistant; PCP Family Medicine
DX: E11.628 Type 2 diabetes mellitus with other skin complications (principal); L03.116 Cellulitis of left lower limb
CPT/HCPCS: 36415; 80053; 82805; 85652; 96365; 99284; 73630; 85025; 86140; 87070; 87205; J0295